=== PATIENT | male | born 1985 | race Caucasian/White ===

== ENCOUNTER 2016-07-13 00:25 | Emergency (ER) | payer SELFPAY ==
[~2016-07-13] VITALS: Ht 182.9 cm; Wt 97.2 kg
[~2016-07-13 00:25] MED LIST: PENI500T PO
[2016-07-13 00:29] VITALS: BP 145/88; PULSE 69; RESP 16; TEMP 98; O2SAT 97
[2016-07-13 00:35] VITALS: BP 145/88; PULSE 69; RESP 16; O2SAT 99
[2016-07-13] MEDS ORDERED: ACETAMINOPHEN/HYDROcodone 325 MG/5 MG TAB PO ONE (01:00)
[2016-07-13] MEDS ORDERED: KETOROLAC TROMETHAMINE 60 MG/2 ML (IM) VIAL IM ONE (01:00)
[2016-07-13] MEDS ORDERED: MOTR200T4 PO (01:18)
[2016-07-13] MEDS ORDERED: HYDR-3533 PO (01:18)
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
[2016-07-13 02:37] VITALS: BP 137/72
== END 2016-07-13 02:40 | disposition home or self-care (01) ==
LOC: PHED 00:25 → PHEFT 02:40
DX: S60.222A Contusion of left hand, initial encounter (principal); W22.09XA Striking against other stationary object, initial encounter; Y93.I9 Activity, other involving external motion; Y92.410 Unspecified street and highway as the place of occurrence of the external cause
CPT/HCPCS: 73130; 96372; 99283; J1885; L3808

== ENCOUNTER 2017-08-28 15:20 | Emergency (ER) | payer SELFPAY ==
[~2017-08-28] VITALS: Ht 180.3 cm; Wt 97.4 kg
[~2017-08-28 15:20] MED LIST changes: +HYDR-3533 PO; +MOTR200T4 PO
[2017-08-28 15:31] VITALS: BP 157/73; PULSE 71; RESP 16; TEMP 98.2; O2SAT 97
[2017-08-28] MEDS ORDERED: PERM5CRE11 TOPICAL (16:20)
--- NOTE | 2017-08-28 16:21 | PD ---
HPI Chief Complaint: Skin Problem Time Seen by Provider: 15:54 Travel History International Travel<30 days: No Contact w/Intl Traveler<30days: No Traveled to known affect area: No History of Present Illness HPI 32-year-old male here with rash to his hands and exposure to scabies. No fever chills. Symptom severity is mild. Rashes been present for 3 days. No aggravating or alleviating factors. PFSH Past Medical History Medical History: Denies Significant Hx Arthritis: No Asthma: No Blood Disorders: No Heart Rhythm Problems: No Cancer: No Cardiovascular Problems: No High Cholesterol: No Chemotherapy: No Chest Pain: No Congestive Heart Failure: No COPD: No Cerebrovascular Accident: No Diminished Hearing: No Endocrine: No GERD: No Glaucoma: No Genitourinary: No Headaches: Yes Hepatitis: No Hiatal Hernia: No Hypertension: No Immune Disorder: No Kidney Stones: No Medical other: Yes (pt info recalled from hx) Musculoskeletal: No Neurologic: Yes Psychiatric: No Reproductive: No Respiratory: Yes (POS TB 1999) Migraines: No Myocardial Infarction: No Radiation Therapy: No Renal Failure: No Seizures: No Sickle Cell Disease: No Sleep Apnea: No Ulcer: No ?: Not Past Surgical History Abdominal Surgery: No AICD: No Appendectomy: No Arteriovenous Shunt: No Cardiac Surgery: No Cholecystectomy: No Ear Surgery: No Endocrine Surgery: No Eye Surgery: No Genitourinary Surgery: No Gynecologic Surgery: No Insulin Pump: No Joint Replacement: No Oral Surgery: No Pacemaker: No Thoracic Surgery: No Other Surgery: Yes Social History Alcohol Use: Yes (3 DRINKS PER WEEK) Tobacco Use: Yes (1/2 PK PER DAY) Substance Use: No Allergies-Medications (Allergen,Severity, Reaction): Coded Allergies: oyster extract (Unverified Allergy, Severe, FACIAL SWELLING, 08/28/17) strawberry (Unverified Allergy, Severe, SWELLING, 08/28/17) Reported Meds & Prescriptions Reported Meds & Active Scripts Active Lortab (Hydrocodone-Acetaminophen) 5-325 Mg Tab 1-2 Tab PO Q6H PRN Motrin Ib (Ibuprofen) 200 Mg Tab 600 Mg PO Q6H PRN Pen Vk (Penicillin V Potassium) 500 Mg Tab 500 Mg PO Q12 10 Days Review of Systems Except as stated in HPI: all other systems reviewed are Neg General / Constitutional: No: Fever Physical Exam Narrative GENERAL: Alert and well-appearing 32-year-old male. No distress. SKIN: Warm and dry. Rash noted to webspace both hands. This is consistent with scabies. No evidence of infection HEAD: Normocephalic. EYES: No injection or drainage. NECK: Supple MUSCULOSKELETAL: No cyanosis, or edema. Data Data Last Documented VS Vital Signs Date Time Temp Pulse Resp B/P (MAP) Pulse Ox O2 Delivery O2 Flow Rate FiO2 08/28/17 15:31 98.2 71 16 157/73 (101) 97 MDM Medical Decision Making Medical Screen Exam Complete: Yes Emergency Medical Condition: Yes Differential Diagnosis Scabies, contact dermatitis, other Narrative Course 32-year-old male here with rash consistent with scabies Diagnosis Primary Impression: Scabies Referrals: Primary Care Physician Scripts Permethrin Topical (Elimite Topical) 5% Cream 1 APPLIC TOPICAL ONCE for Scabies, #1 TUBE 0 Refills Prov: Laila Arvizu 08/28/17 Disposition: 01 DISCHARGE HOME Condition: Stable Laila Arvizu August 28, 2017 16:21
== END 2017-08-28 16:28 | disposition home or self-care (01) ==
LOC: PHEFT 15:20
DX: B86 Scabies (principal); F17.200 Nicotine dependence, unspecified, uncomplicated
CPT/HCPCS: 99283

== ENCOUNTER 2017-10-04 09:20 | Emergency (ER) | payer SELFPAY ==
[~2017-10-04] VITALS: Ht 182.9 cm; Wt 94.7 kg
[~2017-10-04 09:20] MED LIST changes: +PERM5CRE11 TOPICAL
[2017-10-04 09:21] VITALS: BP 153/84; PULSE 53; RESP 16; TEMP 98.1; O2SAT 99
[2017-10-04] MEDS ORDERED: SODIUM CHLOR 0.9% 1000 ML INJ 1,000 ML IV SCH (09:35)
[2017-10-04] MEDS ORDERED: ONDANSETRON ODT 4 MG TAB PO ONE (09:45)
[2017-10-04] MEDS ORDERED: SODIUM CHLORIDE 0.9% FLUSH 10 ML FLUSH IV FLUSH PRN (09:45)
[2017-10-04] MEDS ORDERED: KETOROLAC TROMETHAMINE 30 MG/ML (IVP) VIAL IVP ONE (09:45)
--- NOTE | 2017-10-04 09:45 | PD ---
HPI Chief Complaint: Musculoskeletal Complaint Time Seen by Provider: 09:35 Travel History International Travel<30 days: No Contact w/Intl Traveler<30days: No Traveled to known affect area: No History of Present Illness HPI 32-year-old male presents to the emergency department with complaint of left mid back pain that started this morning upon waking up. Denies injury. Denies fevers, although states he feels very hot. He is diaphoretic. Reports nausea, without vomiting. Patient immediately went to the bathroom and vomited at this time. Denies history of kidney stones. Denies hematuria, dysuria, change in stool. Denies abdominal pain. Has not taken any medication or try any treatments to alleviate his symptoms. Rates pain 10/10. Says the pain feels deep inside. Pain is constant. No known aggravating or relieving factors. Occasional alcohol use. Does not have a primary care provider. Allergies to oyster extract and strawberries. Denies significant past medical history. Has no other medical complaints. No other modifying factors or associated signs and symptoms. PFSH Past Medical History Arthritis: No Asthma: No Blood Disorders: No Heart Rhythm Problems: No Cancer: No Cardiovascular Problems: No High Cholesterol: No Chemotherapy: No Chest Pain: No Congestive Heart Failure: No COPD: No Cerebrovascular Accident: No Diminished Hearing: No Endocrine: No GERD: No Glaucoma: No Genitourinary: No Headaches: Yes Hepatitis: No Hiatal Hernia: No Hypertension: No Immune Disorder: No Kidney Stones: No Musculoskeletal: No Neurologic: Yes Psychiatric: No Reproductive: No Respiratory: Yes (POS TB 1999) Migraines: No Myocardial Infarction: No Radiation Therapy: No Renal Failure: No Seizures: No Sickle Cell Disease: No Sleep Apnea: No Ulcer: No Past Surgical History Abdominal Surgery: No AICD: No Appendectomy: No Arteriovenous Shunt: No Cardiac Surgery: No Cholecystectomy: No Ear Surgery: No Endocrine Surgery: No Eye Surgery: No Genitourinary Surgery: No Gynecologic Surgery: No Insulin Pump: No Joint Replacement: No Oral Surgery: No Pacemaker: No Thoracic Surgery: No Other Surgery: Yes Social History Alcohol Use: Yes Tobacco Use: Yes (1PPD) Substance Use: Yes (MARIJUANA) Allergies-Medications (Allergen,Severity, Reaction): Coded Allergies: oyster extract (Unverified Allergy, Severe, FACIAL SWELLING, 10/04/17) strawberry (Unverified Allergy, Severe, SWELLING, 10/04/17) Reported Meds & Prescriptions Reported Meds & Active Scripts Active No Active Prescriptions or Reported Medications Review of Systems Except as stated in HPI: all other systems reviewed are Neg Physical Exam Narrative GENERAL: Well-nourished, well-developed male patient, in no acute distress; appears painful SKIN: Diaphoretic. Warm and dry. No rash. HEAD: Atraumatic. Normocephalic. EYES: Pupils equal and round. No scleral icterus. No injection or drainage. ENT: Mucosa pink and moist. NECK: Trachea midline. CARDIOVASCULAR: Regular rate and rhythm. No murmur appreciated. RESPIRATORY: No accessory muscle use. Clear to auscultation. Breath sounds equal bilaterally. GASTROINTESTINAL: Abdomen soft, tenderness elicited to the left upper quadrant, nondistended. Hepatic and splenic margins not palpable. Bowel sounds are active 4 quadrants. Bladder nontender and nondistended. MUSCULOSKELETAL: No obvious deformities. No clubbing. No cyanosis. No edema. BACK: Left CVA tenderness. No reproducible tenderness on palpation of the musculature of the left mid and lower back. NEUROLOGICAL: Awake and alert. Oriented 3. No obvious cranial nerve deficits. Motor grossly within normal limits. Normal speech. Moves all extremities. 5/5 strength to all extremities. PSYCHIATRIC: Appropriate mood and affect; insight and judgment normal. Data Data Last Documented VS Vital Signs Date Time Temp Pulse Resp B/P (MAP) Pulse Ox O2 Delivery O2 Flow Rate FiO2 10/04/17 09:21 98.1 53 16 153/84 (107) 99 Orders Orders Complete Blood Count With Diff (10/04/17 09:35) Comprehensive Metabolic Panel (10/04/17 09:35) Lipase (10/04/17 09:35) Urinalysis - C+S If Indicated (10/04/17 09:35) Ct Abd/Pel W/O Iv Contrast (10/04/17 09:35) Iv Access Insert/Monitor (10/04/17 09:35) Sodium Chlor 0.9% 1000 Ml Inj (Ns 1000 M (10/04/17 09:35) Sodium Chloride 0.9% Flush (Ns Flush) (10/04/17 09:45) Ketorolac Inj (Toradol Inj) (10/04/17 09:45) Ondansetron Odt (Zofran Odt) (10/04/17 09:45) Hydromorphone Pf Inj (Dilaudid Pf Inj) (10/04/17 10:00) Hydromorphone Pf Inj (Dilaudid Pf Inj) (10/04/17 11:00) Labs Laboratory Tests Test 10/04/17 09:40 White Blood Count 9.8 TH/MM3 Red Blood Count 5.30 MIL/MM3 Hemoglobin 16.2 GM/DL Hematocrit 46.6 % Mean Corpuscular Volume 87.9 FL Mean Corpuscular Hemoglobin 30.5 PG Mean Corpuscular Hemoglobin Concent 34.8 % Red Cell Distribution Width 12.8 % Platelet Count 232 TH/MM3 Mean Platelet Volume 8.8 FL Neutrophils (%) (Auto) 63.5 % Lymphocytes (%) (Auto) 26.5 % Monocytes (%) (Auto) 7.0 % Eosinophils (%) (Auto) 2.3 % Basophils (%) (Auto) 0.7 % Neutrophils # (Auto) 6.2 TH/MM3 Lymphocytes # (Auto) 2.6 TH/MM3 Monocytes # (Auto) 0.7 TH/MM3 Eosinophils # (Auto) 0.2 TH/MM3 Basophils # (Auto) 0.1 TH/MM3 CBC Comment DIFF FINAL Differential Comment Urine Collection Type CLEAN CATCH Urine Color YELLOW Urine Turbidity CLEAR Urine pH 5.5 Urine Specific [place] GREATER/EQUAL 1.030 Urine Protein NEG mg/dL Urine Glucose (UA) NEG mg/dL Urine Ketones NEG mg/dL Urine Occult Blood NEG Urine Nitrite NEG Urine Bilirubin NEG Urine Urobilinogen 0.2 MG/DL Urine Leukocyte Esterase NEG Urine RBC 0-3 /hpf Urine WBC 0-2 /hpf Urine Squamous Epithelial Cells 0-5 /hpf Microscopic Urinalysis Comment CULT NOT INDICATED Blood Urea Nitrogen 15 MG/DL Creatinine 1.10 MG/DL Random Glucose 138 MG/DL Total Protein 7.7 GM/DL Albumin 3.9 GM/DL Calcium Level 8.3 MG/DL Alkaline Phosphatase 86 U/L Aspartate Amino Transf (AST/SGOT) 29 U/L Alanine Aminotransferase (ALT/SGPT) 49 U/L Total Bilirubin 0.7 MG/DL Sodium Level 140 MEQ/L Potassium Level 3.9 MEQ/L Chloride Level 108 MEQ/L Carbon Dioxide Level 25.8 MEQ/L Anion Gap 6 MEQ/L Estimat Glomerular Filtration Rate 77 ML/MIN Lipase 75 U/L [facility] [place] Medical Decision Making Medical Screen Exam Complete: Yes Emergency Medical Condition: Yes Medical Record Reviewed: Yes Differential Diagnosis Kidney stones, pyelonephritis, hydronephrosis, pancreatitis Narrative Course 32-year-old male with left CVA tenderness on exam. Patient is diaphoretic and appears very painful. Denies history of kidney stones. Patient had go to the bathroom to vomit during HPI and physical exam. CBC, CMP, lipase, urinalysis, IV, IV fluids, Toradol, Zofran, CT abdomen/pelvis ordered. 0955: Dr. Orosco evaluated the patient and agrees with my plan of care recommended something more for pain and the patient agreed to administration. Dilaudid ordered. 1015: CBC, CMP, lipase, urinalysis unremarkable. 1035: CT abdomen/pelvis conclude: Abdomen/Pelvis CT 10/04/17 0935 Signed Impressions: CONCLUSION: 5 mm stone at the left ureterovesical junction with slight hydronephrosis. CT report discussed with the patient. Percocet, Flomax, Zofran prescribed for home. Instructed patient to follow-up with urologist. Urine strainer provided for home. Instructed patient to follow up with primary care provider. Patient verbalizes understanding and agreement with treatment plan. Patient is medically cleared and stable for discharge. Discussed reasons to return to the emergency department. Patient agrees with treatment plan. The patients vital signs are stable and the patient is stable for outpatient follow-up and treatment. Patient discharged home, stable and in no acute distress. Diagnosis Primary Impression: Kidney stone on left side Referrals: Primary Care Physician Urologist Patient Instructions: General Instructions, Kidney Stones (ED) Departure Forms: Tests/Procedures, Work Release Enter return to work date: Oct 06, 2017 Special Instructions: may return to work earlier at patients discretion Additional Instructions: Ibuprofen as needed and as directed to reduce pain Percocet as prescribed and as needed for pain; do not drink or drive while taking Percocet Flomax as prescribed Zofran as prescribed and as needed for nausea/vomiting Drink plenty of fluids Follow-up with primary care provider Follow-up with urologist Return to the emergency department immediately with worsening of symptoms Med/Other Pt SpecificInfo: Prescription(s) given Scripts Tamsulosin (Flomax) 0.4 Mg Cap 0.4 MG PO HS for Manage Prostate Problems for 5 Days, CAP 0 Refills Prov: Rosa Mcgregor 10/04/17 Oxycodone-Acetaminophen (Percocet) 5-325 mg Tab 1-2 TAB PO Q4-6H Y for PAIN, #20 TAB 0 Refills Prov: Rosa Mcgregor 10/04/17 Ondansetron Odt (Zofran Odt) 4 Mg Tab 4 MG SL Q8HR Y for Nausea/Vomiting, #10 TAB 0 Refills Prov: Rosa Mcgregor 10/04/17 Disposition: 01 DISCHARGE HOME Condition: Stable Rosa Mcgregor Oct 04, 2017 09:45
[2017-10-04 09:52] LABS: BILIRUBIN, URINE NEG (NEG); BLOOD, URINE NEG (NEG); GLUCOSE,URINE NEG (NEG); KETONE, URINE NEG (NEG); NITRITE,URINE NEG (NEG); PH, URINE 5.5 (5.0-8.5); URINE COLOR YELLOW (YELLW/STRAW); URINE LEUKOCYTE ESTERASE NEG (NEG)
[2017-10-04 09:54] LABS: AUTOMATED NEUTROPHIL # 6.2 TH/MM3 (1.8-7.7); BASOPHIL # 0.1 TH/MM3 (0-0.2); BASOPHIL % 0.7 % (0.0-2.0); EOSINOPHIL # 0.2 TH/MM3 (0-0.4); EOSINOPHIL % 2.3 % (0.0-4.0); HEMATOCRIT 46.6 % (39.0-51.0); HEMOGLOBIN 16.2 GM/DL (13.0-17.0); LYMPH % 26.5 % (9.0-44.0); LYMPHOCYTE # 2.6 TH/MM3 (1.0-4.8); MEAN CELL VOLUME 87.9 FL (80.0-100.0); MEAN CORPUSCULAR HEMOGLOBIN 30.5 PG (27.0-34.0); MEAN CORPUSCULAR HGB CONC 34.8 % (32.0-36.0); MEAN PLATELET VOLUME 8.8 FL (7.0-11.0); MONOCYTE # 0.7 TH/MM3 (0-0.9); NEUT % 63.5 % (16.0-70.0); PLATELET COUNT 232 TH/MM3 (150-450); RED CELL DISTRIBUTION WIDTH 12.8 % (11.6-17.2); WHITE BLOOD COUNT 9.8 TH/MM3 (4.0-11.0)
[2017-10-04 10:00] LABS: RBC, URINE 0-3 /hpf (0-3); SQUAMOUS EPITHELIAL CELL URINE 0-5 /hpf (0-5); WBC, URINE 0-2 /hpf (0-5)
[2017-10-04] MEDS ORDERED: HYDROmorphone HCL PF 1 MG/ML VIAL IV PUSH ONE (10:00)
[2017-10-04 10:01] LABS: CHLORIDE 108 MEQ/L (98-107); SODIUM (NA) 140 MEQ/L (136-145)
[2017-10-04 10:05] LABS: ALBUMIN 3.9 GM/DL (3.4-5.0); BICARBONATE 25.8 MEQ/L (21.0-32.0); BLOOD UREA NITROGEN 15 MG/DL (7-18); CALCIUM 8.3 MG/DL (8.5-10.1); GLUCOSE,RANDOM 138 MG/DL (74-106)
[2017-10-04 10:08] LABS: ALT (GPT) 49 U/L (12-78); AST (GOT) 29 U/L (15-37); GLOMERULAR FILTRATION RATE 77 ML/MIN (>89)
[2017-10-04 10:10] LABS: TOTAL PROTEIN 7.7 GM/DL (6.4-8.2)
[2017-10-04 10:13] LABS: ALKALINE PHOSPHATASE 86 U/L (45-117)
[2017-10-04 10:14] LABS: TOTAL BILIRUBIN ADULT 0.7 MG/DL (0.2-1.0)
--- NOTE | 2017-10-04 10:31 | RADRPT ---
EXAM DATE: 10/04/2017 10:18 AM EDT AGE/SEX: 32 years / Male INDICATIONS: Left flank pain. Nausea and vomiting. CLINICAL DATA: This is the patient's initial encounter. Patient reports that signs and symptoms have been present for 1 day and indicates a pain score of 10/10. MEDICAL/SURGICAL HISTORY: None. None. RADIATION DOSE: 8.54 CTDI (mGy) COMPARISON: No prior exams available for comparison. TECHNIQUE: Multiple contiguous axial images were obtained through the abdomen. Images were obtained using multiple row detector helical technique. Using dose reduction techniques, radiation dose was ke pt as low as reasonably achievable to obtain optimal diagnostic quality images. FINDINGS: Lower Lungs: The visualized lower lungs are clear. Liver: The liver has a homogeneous density without space-occupying lesion. There is no dilation of th e biliary tree. Spleen: Homogeneous density without enlargement. Pancreas: Unremarkable without mass or calcification. Kidneys: Slight left hydronephrosis. Minimal dilatation of the left ureter down to the level of a 5 mm stone at the ureterovesical junction. Adrenal Glands: Unremarkable. Aorta: The aorta and proximal iliac vessels are grossly unremarkable without aneurysmal dilation. Bowel/Mesentery: The bowel loops are grossly unremarkable. The cecum and sigmoid colon have a normal configuration. Abdominal Wall: Intact. Retroperitoneum: No evidence of adenopathy in the retrocrural, para-aortic, or deep pelvic regions. Bladder: Contours are smooth. Reproductive Organs: No abnormal masses or calcifications seen. Inguinal: The inguinal region is unremarkable without evidence of adenopathy. Bony Structures: Unremarkable. CONCLUSION: 5 mm stone at the left ureterovesical junction with slight hydronephrosis. Electronically signed by: Jozef Fam MD 10/04/2017 10:29 AM EDT
[2017-10-04] MEDS ORDERED: ZOFR4TAB3 SL (10:49)
[2017-10-04] MEDS ORDERED: TAMS5CAP PO (10:49)
[2017-10-04] MEDS ORDERED: PERC5TAB12 PO (10:49)
[2017-10-04] MEDS ORDERED: HYDROmorphone HCL PF 0.5 MG/0.5 ML SYRINGE IV PUSH ONE (11:00)
== END 2017-10-04 11:07 | disposition home or self-care (01) ==
LOC: PHEFT 09:20
DX: N13.2 Hydronephrosis with renal and ureteral calculous obstruction (principal); R11.2 Nausea with vomiting, unspecified; R61 Generalized hyperhidrosis; F17.200 Nicotine dependence, unspecified, uncomplicated; F12.90 Cannabis use, unspecified, uncomplicated
CPT/HCPCS: 74176; 80053; 81001; 83690; 85025; 96374; 96375; 99284; J1170; J1885; J7030